=== PATIENT | male | born 1990 | race American Indian/Alaskan Native ===

== ENCOUNTER 2020-11-13 04:26 | Emergency (ER) | payer MEDICARE ==
[2020-11-13 06:16] VITALS: BP 123/71
[2020-11-13 07:13] LABS: Basophils % (Auto) 0.3 % (0.0-1.8); Eosinophils # (Auto) 0.1 K/mm3 (0.0-0.4); Eosinophils % (Auto) 0.9 % (0.0-4.3); Hemoglobin 13.6 gm/dl (11.8-15.2); Lymphocytes # (Auto) 2.2 K/mm3 (1.2-5.4); Lymphocytes % (Auto) 26.5 % (13.4-35.0); Mean Corpuscular HGB Conc 35 % (32-34); Mean Corpuscular Volume 85 fl (84-94); Monocytes # (Auto) 0.4 K/mm3 (0.0-0.8); Monocytes % (Auto) 4.7 % (0.0-7.3); Platelet Count 225 K/mm3 (140-440); Red Blood Count 4.57 M/mm3 (3.65-5.03); Red Cell Distribution Width 14.7 % (13.2-15.2)
[2020-11-13 07:22] LABS: Bilirubin,Urine NEG (Negative); Blood,Urine NEG (Negative); Color,Urine Yellow (Yellow); Mucus,Urine 3+ /HPF
[2020-11-13 07:25] LABS: Amphetamine Screen,Urine Negative; Benzodiazepines Screen,Urine Negative; Cocaine Screen,Urine Negative; Methadone Screen,Urine Negative; Opiate Screen,Urine Negative
[2020-11-13 07:31] LABS: Blood Urea Nitrogen 8 mg/dL (9-20); Calcium 9.9 mg/dL (8.4-10.2); Hemolysis Index 5
[2020-11-13 07:34] LABS: BUN/Creatinine Ratio 13
[2020-11-13 07:47] LABS: Cannabinoid Screen,Urine Positive
== END 2020-11-13 11:25 ==
LOC: ED 04:26
DX: Z00.8 Encounter for other general examination (principal); Z79.899 Other long term (current) drug therapy; Z53.21 Procedure and treatment not carried out due to patient leaving prior to being seen by health care provider
CPT/HCPCS: 36415; 80048; 80307; 80320; 81001; 85025; G0480

== ENCOUNTER 2021-09-09 19:52 | Emergency (ER) | payer MEDICARE ==
--- NOTE | 2021-09-09 20:55 | Emergency Department Report ---
ED Psych HPI - General Chief Complaint: Psych Stated Complaint: PSYCH HELP/HEARING VOICES Time Seen by Provider: 09/09/21 20:33 Source: patient Mode of arrival: Stretcher - History of Present Illness Initial Comments: 31 yo M with h/o anxiety and depression with schizophrenia who now presents with hearing voices and been angry at his parent. Pt however denies any suicide or homicidal ideation. No other modifying or associated factors. - Related Data Allergies Allergy/AdvReac Type Severity Reaction Status Date / Time No Known Allergies Allergy Unverified 11/13/20 06:23 ED Review of Systems ROS: Stated complaint: PSYCH HELP/HEARING VOICES Other details as noted in HPI Comment: All other systems reviewed and negative Psychiatric: anxiety, depression, auditory hallucinations ED Past Medical Hx - Past Medical History Previous Medical History?: Yes Hx Psychiatric Treatment: Yes (Schizophrenia) - Surgical History Past Surgical History?: No - Social History Smoking Status: Current Every Day Smoker Substance Use Type: Marijuana ED Physical Exam - General Limitations: No Limitations General appearance: alert, in no apparent distress - Head Head exam: Present: normal inspection - Eye Eye exam: Present: normal appearance Pupils: Present: normal accommodation - ENT ENT exam: Present: normal exam, normal orophraynx, mucous membranes moist - Neck Neck exam: Present: normal inspection, full ROM. Absent: tenderness, lymphadenopathy - Respiratory Respiratory exam: Present: normal lung sounds bilaterally. Absent: respiratory distress, accessory muscle use - Cardiovascular Cardiovascular Exam: Present: regular rate, normal rhythm, normal heart sounds - GI/Abdominal GI/Abdominal exam: Present: soft, normal bowel sounds. Absent: distended, tende rness - Extremities Exam Extremities exam: Present: normal inspection, normal capillary refill. Absent: full ROM, tenderness, pedal edema, joint swelling - Back Exam Back exam: Absent: tenderness - Neurological Exam Neurological exam: Present: alert, oriented X3 - Psychiatric Psychiatric exam: Present: normal affect, anxious. Absent: homicidal ideation, suicidal ideation - Skin Skin exam: Present: warm, normal color ED Course Vital Signs 09/09/21 09/09/21 09/09/21 20:00 20:08 20:34 Temperature 98 F 99.0 F Pulse Rate 105 H 106 H Respiratory 18 18 Rate Blood Pressure 132/82 Blood Pressure 116/65 [Right] O2 Sat by Pulse 100 100 97 Oximetry 09/10/21 09/10/2122 07:14 09:00 11:15 Temperature 98.2 F Pulse Rate 65 Respiratory 18 Rate Blood Pressure Blood Pressure 121/80 [Right] O2 Sat by Pulse 99 99 99 Oximetry 09/10/21 20:17 Temperature 98.4 F Pulse Rate 82 Respiratory 16 Rate Blood Pressure Blood Pressure 116/78 [Right] O2 Sat by Pulse 93 Oximetry - Reevaluation(s) Reevaluation #1: 09/09/21 20:56 here with auditory hallucination -- will check routine labs including UDS and Thyroid profile -- ED Medical Decision Making - Lab Data Result diagrams: 09/09/21 20:43 09/09/21 20:43 Critical care attestation.: If time is entered above; I have spent that time in minutes in the direct care of this critically ill patient, excluding procedure time. ED Disposition Clinical Impression: Auditory hallucination Disposition: 04 [facility] Is pt being admited?: No Does the pt Need Aspirin: No Condition: Stable Referrals: PRIMARY CARE, [Primary Care Provider] - 3-5 Days
[2021-09-09 20:56] LABS: Bilirubin,Urine NEG (Negative); Blood,Urine NEG (Negative); Color,Urine Yellow (Yellow); Protein,Urine <15 mg/dL mg/dL (Negative); Urobilinogen,Urine < 2.0 mg/dL (<2.0)
[2021-09-09 21:06] LABS: Amphetamine Screen,Urine Negative; Benzodiazepines Screen,Urine Negative; Cannabinoid Screen,Urine Negative; Cocaine Screen,Urine Negative; Methadone Screen,Urine Negative; Opiate Screen,Urine Negative
[2021-09-09 21:11] LABS: Mucus,Urine FEW /HPF
[2021-09-09 21:17] LABS: Hematocrit 39.9 % (35.5-45.6); Hemoglobin 13.8 gm/dl (11.8-15.2); Mean Corpuscular HGB Conc 35 % (32-34); Mean Corpuscular Volume 82 fl (84-94); Platelet Count 174 K/mm3 (140-440); Red Blood Count 4.87 M/mm3 (3.65-5.03)
[2021-09-09 21:25] LABS: BUN/Creatinine Ratio 13; Blood Urea Nitrogen 10 mg/dL (9-20); Calcium 10.2 mg/dL (8.4-10.2); Hemolysis Index 7
[2021-09-09 22:07] LABS: RBC Morphology Normal; Total Cells Counted 100
--- NOTE | 2021-09-10 09:42 | Consultation ---
History of Present Illness - Reason for Consult Consult date: 09/10/21 Reason for consult: hallucinations - History of Present Psychiatric Illness HPI: 31 yo M with h/o anxiety and depression with schizophrenia who now presents with hearing voices and been angry at his parent. Pt however denies any suicide or homicidal ideation. No other modifying or associated factors. The patient was seen. He did not cooperate with the evaluation. He is responding to internal stimuli. He stares and refuses to speak. PAST PSYCHIATRIC HISTORY: Unable to assess PAST MEDICAL HISTORY: None reported or document Family Psychiatric History: None reported or documented SOCIAL HISTORY Unable to assess REVIEW OF SYSTEMS MENTAL STATUS EXAMINATION Unable to assess Diagnoses: Schizophrenia Treatment Plan 1013 Zyprexa 5mg po BID Doxepin 10mg po qhs PSYCHOTHERAPY: Supportive psychotherapy provided MEDICAL: Per primary team DELIRIUM PRECAUTIONS: Please re-orient patient frequently, keep lights on during the day, and minimize benzodiazepines and opiates as these medications could worsen patient's confusion. [employer] SUPERVISOR: Per medical team DISPOSITION: Recommend acute psychiatric inpatient treatment. Will follow. Thank you for the consult. Case staffed with Dr. Henning Medications and Allergies Allergies Allergy/AdvReac Type Severity Reaction Status Date / Time No Known Allergies Allergy Unverified 11/13/20 06:23 Mental Status Exam - Vital signs Last Vital Signs Temp 98.2 F 09/10/21 07:14 Pulse 65 09/10/21 07:14 Resp 18 09/10/21 07:14 BP 121/80 09/10/21 07:14 Pulse Ox 99 09/10/21 07:14 Results Result Diagrams: 09/09/21 20:43 09/09/21 20:43 Abnormal lab results 09/09/21 09/09/21 09/09/21 Range/Units 20:43 20:43 20:43 MCV (84-94) fl MCHC (32-34) % Eosinophils % (Manual) (0.0-4.3) % Eosinophils # (Manual) (0.0-0.4) K/mm3 Glucose 138 H (75-100) mg/dL Salicylates < 0.3 L (2.8-20.0) mg/dL Acetaminophen 5.0 L (10.0-30.0) ug/mL 09/09/21 Range/Units 20:43 MCV 82 L (84-94) fl MCHC 35 H (32-34) % Eosinophils % (Manual) 20.0 H (0.0-4.3) % Eosinophils # (Manual) 1.6 H (0.0-0.4) K/mm3 Glucose (75-100) mg/dL Salicylates (2.8-20.0) mg/dL Acetaminophen (10.0-30.0) ug/mL All other labs normal.
[2021-09-10 20:35] VITALS: BP 116/78
[2021-09-10] MEDS ORDERED: DOXEPIN 10 MG CAP PO SCH (22:00)
== END 2021-09-11 00:54 ==
LOC: ED 19:52
DX: R44.0 Auditory hallucinations (principal); F17.200 Nicotine dependence, unspecified, uncomplicated; F12.90 Cannabis use, unspecified, uncomplicated; Z20.822 Contact with and (suspected) exposure to COVID-19
CPT/HCPCS: 36415; 80048; 80307; 81001; 85007; 85025; 99285; U0003; 80320; 99284; G0480